=== PATIENT | female | born 1975 | race Caucasian/White ===

== ENCOUNTER 2017-07-15 06:15 | Observation (INO) ==
[2017-07-15] MEDS ORDERED: CIPROFLOXACIN INJ 400 MG in PREMIX 1 EACH IV ONE (07:00)
--- NOTE | 2017-07-15 07:06 | History and Physical Update ---
History and Physical Update - History and Physical H&P was reviewed, the patient examined and there: are no changes in the patients condition since last H&P was completed.
--- NOTE | 2017-07-15 07:41 | EKG Report ---
Stationary ECG Study [facility] Test Date: 07/15/2017 7:38:47 AM Pat Name: AZALIA JONES Department: Room: 609 Gender: F Site Physician: ZANDER : [id number] Requested by: Andrew Mena Order Number: [id number] Reading MD: DEMARCO MENDES Intervals [place] Rate: 65 P: 42 SD: 155 QRS: 60 QRSD: 85 T: 43 QT: 387 QTc: 399 Interpretive Statements SINUS RHYTHM Electronically Signed On 07-15-17 08:05:35 CDT by DEMARCO MENDES [email or web address]
--- NOTE | 2017-07-15 07:50 | XRay Report ---
XR chest 1V Indication: Preop evaluation Comparison: None Technique: Single frontal view of the chest. Findings: Heart size within normal limits. No focal consolidation, pleural effusion, or pneumothorax. Visualized osseous and surrounding soft tissue structures demonstrate no acute abnormality. IMPRESSION: No acute cardiopulmonary process demonstrated. PROCEDURE INTERPRETED AT [facility] DEPARTMENT OF RADIOLOGY Final Report Signed by: Dr Hector Jarvis
[2017-07-15 08:13] LABS: Basophils % 0.6 % (0.0-0.8); Eosinophils # 0.1 10*3/uL (0.0-0.87); Eosinophils % 2.3 % (0.00-10.9); Hematocrit 37.5 VOL% (35.7-47.0); Hemoglobin 13.4 GM/DL (12.0-16.0); Immature Granulocytes % 0.2 %; Immature Granulocytes Absolute 0.01 #; Lymphocytes # 1.3 10*3/uL (1.4-4.0); Lymphocytes % 24.6 % (21.3-54.2); Mean Corpuscular HGB Conc 35.7 GM/DL (32-36); Mean Corpuscular Hemoglobin 35 PG (27-34); Mean Corpuscular Volume 98.7 FL (87-102); Mean Platelet Volume 10.3 FL (9.6-12.0); Monocytes # 0.5 10*3/uL (0.11-0.8); Neutrophils # 3.2 10*3/uL (1.4-7.4); Neutrophils % 62.3 % (38.7-73.9); Platelet Count 197 T/CUMM (130-400); Red Cell Distribution Width 12.7 % (9.3-17.3); White Blood Count 5.2 T/CUMM (4-12)
[2017-07-15 08:36] LABS: Albumin 3.7 G/DL (3.4-5.0); Bilirubin,Total 0.8 MG/DL (0.2-1.0); Calcium 8.4 MG/DL (8.5-10.1); Osmolality,Calculated 277.7 MOS/KG (273-304); Potassium 4.1 MMOL/L (3.5-5.1); Total Protein 7.2 G/DL (6.4-8.3)
[2017-07-15] MEDS ORDERED: CIPROFLOXACIN 400 MG/200 ML PREMIX IV ONE (08:43)
[2017-07-15] MEDS ORDERED: DIAZEPAM 5 MG TABLET ONE (10:07)
[2017-07-15] MEDS ORDERED: FAMOTIDINE 20 MG TABLET PO ONE (10:36)
[2017-07-15] MEDS ORDERED: DIAZEPAM 5 MG TABLET PO ONE (10:36)
[2017-07-15] MEDS ORDERED: FAMOTIDINE 20 MG TABLET ONE (10:57)
[2017-07-15] MEDS ORDERED: LACTATED RINGERS 1,000 ML IV SCH (11:00)
[2017-07-15] MEDS ORDERED: BUPIVACAINE MPF 0.25% /EPI 30 ML VIAL ONE (12:36)
[2017-07-15] MEDS ORDERED: ROCURONIUM 100 MG/10 ML VIAL IV ONE (13:07)
[2017-07-15] MEDS ORDERED: PROPOFOL 200 MG/20 ML VIAL IV ONE (13:07)
[2017-07-15] MEDS ORDERED: KETOROLAC 30 MG/1 ML VIAL ONE (13:07)
[2017-07-15] MEDS ORDERED: ONDANSETRON 4 MG/2 ML VIAL ONE (13:07)
[2017-07-15] MEDS ORDERED: LIDOCAINE 1% 5 ML VIAL ONE (13:07)
[2017-07-15] MEDS ORDERED: TISSUE ADHESIVE 1 EACH APPLICATOR TOP ONE (14:38)
--- NOTE | 2017-07-15 14:38 | Fluoroscopy Report ---
Exam: [place] cholangiogram in surgery Date: 07/15/2017 Indication: Pain Comparison: None Findings: 26 seconds fluoroscopy time provided to Dr. Mena. The common bile duct left and right biliary radicals are unremarkable. Contrast empties through the ampulla into the duodenum. Surgical clips are present. Surgical is dilatation noted. Approximately 10 cc iodinated contrast administered. No extravasation of contrast noted. Faint filling of the pancreatic duct is demonstrated on the delayed images. Impression: 1. Normal intraoperative cholangiography. PROCEDURE INTERPRETED AT [facility] DEPARTMENT OF RADIOLOGY Final Report Signed by: Dr. Chandler Simon
[2017-07-15] MEDS ORDERED: BISACODYL 5 MG TABLET PO PRN (14:52)
[2017-07-15] MEDS ORDERED: ACETAMINOPHEN 325 MG TABLET PO PRN (14:52)
[2017-07-15] MEDS ORDERED: HYDROmorphone 2 MG/1 ML VIAL IV PRN (14:52)
--- NOTE | 2017-07-15 15:05 | Operative Note ---
Date of procedure: 07/15/17 Pre-op diagnosis: Cholecystitis with cholelithiasis Post-op diagnosis: same Procedure: Operative note: Preoperative diagnosis: Cholecystitis with cholelithiasis. Postoperative diagnosis: Same Procedure: Laparoscopic cholecystectomy with intraoperative cholangiogram Surgeon Dr. Mena Tuberculosis Specialist Tish Garcia, [facility] Anesthesia is general with local Brief history: 42-year-old white female with recurrent episodes of nausea and vomiting and epigastric pain that radiates to her back into the right flank area especially after eating certain foods. She has had an ultrasound that showed that she had some gallstones in the gallbladder and there was a question of a little cystic area in the liver. Her symptoms were very consistent with gallbladder disease and because she is having recurring attacks we felt his best go ahead and move along with removing the gallbladder. She came through same day surgery. Procedure: With patient in the supine position prepped and draped in sterile fashion timeout and antibiotics completed approaches area of the abdomen itself. She has a bellybutton ring scar present so we will try to go just above that after infiltrated with a local anesthetic made little incision just above this area at the level of the umbilicus calf dissected down through the skin and subcutaneous tissue bleeding controlled with cauterization. I incised the fascia with the knife and elevated that up carefully dissected until I could easily get into the peritoneal cavity under direct vision. I then placed a 11 mm trocar in and we instilled 3 L of CO2 into the abdomen. With that completed we will put her scope and begin to look around pelvic area looked clear even portions of the colon right lower quadrant all look fairly normal with no inflammatory changes present this time no unusual adhesions seen. Then look back up at the liver what we could see of the liver all look normal I did not see any abnormalities he looks smooth and clean no fatty changes present at this time. At that point I went ahead and placed in a 5 mm trocar at the anterior axillary and one in the midclavicular line and then epigastric 11 mm trocar under direct vision. Patient was then placed in the upright tilted left side position. At that point we see the gallbladder which was pale and steward in nature but not unusually thickened at this time. I was able to grab the fundus and elevated up and then put a grasper own to the infundibulum portion. Again what we are seeing of the liver looked all normal. At that point I begin careful dissection until I could easily identify the cystic duct. I put a clip on it approximately we made little incision in the cystic duct. I then placed a cholangiocatheter and clipped in place. We brought C arm up and we did several x-rays that showed that there were no stones in the common duct upper radicles looked okay this was in the cystic duct. At that point we then went back and reestablished our exposure. I then removed the clip and the Cholangiocath that I placed 3 clips across the distal part of the cystic duct and divided it. Carefully dissected out cystic artery and placed 3 clips on approximately 1 distally and divided it. I then begin to take the gallbladder out by incising peritoneal attachments anteriorly and posteriorly begin sharp and blunt dissection in order to get the gallbladder out of the liver bed using light cauterization and a couple clips to controlling bleeding. Once I had the gallbladder free from the liver bed I placed in the Endo Catch bag we pulled it out through the umbilical port without problems. We went back in washed and irrigated above and below the liver there was a small bleeder that we touched and got under control and then it looked like there was no evidence of any bleeding present. Once that was completed and the liver bed looked dry we had cleaned out we then went back and pulled her trocar sites with no bleeding from them. Went to the epigastric port and placed a single suture of 0 Monocryl in that epigastric fascia just close it down. We then went back to the umbilical port were closed that fascia with interrupted 0 Monocryl suture. Once that was done we washed irrigated out the subtenons tissue closed with 3-0 Vicryl and then closed skin running 4-0 Monocryl Dermabond was applied and the patient was taken to recovery room. Estimated blood loss 20 cc Sponge count correct 2 Drains none Complications none Condition stable satisfactory Anesthesia: GETA, local (0.25% Marcaine with epinephrine mixed [id number] 1% Xylocaine plain) Surgeon / Physician: Andrew Mena Tuberculosis Specialist: Tish Garcia Estimated blood loss: other (20 cc) Specimens: other (Gallbladder) Condition: stable Disposition: floor Results - Labs CBC & BMP: 07/15/17 07:54 07/15/17 07:54 Discharge Plan - Discharge Medications No Action No Known Home Medications [No Known Home Medications] - Follow Up or Referral - Forms/Instructions
--- NOTE | 2017-07-15 15:07 | Anesthesia Post-Op ---
Anesthesia Post OP - Post Ansesthetic Evaluation Patient seen in post op: Yes Resp: within normal limits CV: within normal limits Mental: within normal limits Temp: within normal limits [id number]: within normal limits Nausea and Vomiting: within normal limits Pain: within normal limits
[2017-07-15] MEDS ORDERED: SEVOFLURANE 1 UNIT/15 MINUTE INH ONE (15:09)
[2017-07-15] MEDS ORDERED: ACETAMINOPHEN 1,000 MG/100 ML VIAL IV ONE (15:10)
[2017-07-15] MEDS ORDERED: LACTATED RINGERS 1,000 ML IV ONE (15:10)
[2017-07-15] MEDS ORDERED: fentaNYL 100 MCG/2 ML VIAL ONE (15:10)
[2017-07-15] MEDS ORDERED: MIDAZOLAM 2 MG/2 ML VIAL ONE (15:10)
[2017-07-15] MEDS: KETOROLAC 15 MG/1 ML VIAL IV SCH (16:59)
[2017-07-15] MEDS: DEXTROSE 5% NACL 0.45% 1,000 ML IV SCH (17:08)
[2017-07-15] MEDS: ONDANSETRON 4 MG/2 ML VIAL IV PRN ×2 (17:25→21:27)
[2017-07-15 20:10] LABS: Hematocrit 34.5 VOL% (35.7-47.0)
[2017-07-15] MEDS: ALUMINUM/MAGNES/SIMETH MAX STR 30 ML UDCUP PO PRN (21:27)
[2017-07-16] MEDS: KETOROLAC 15 MG/1 ML VIAL IV SCH ×4 (01:01→15:08)
[2017-07-16] MEDS: CIPROFLOXACIN INJ 400 MG in PREMIX 1 EACH IV SCH ×2 (02:14→15:07)
[2017-07-16] MEDS: DEXTROSE 5% NACL 0.45% 1,000 ML IV SCH ×2 (03:28→11:00)
[2017-07-16 06:30] LABS: Basophils % 0.4 % (0.0-0.8); Eosinophils # 0.1 10*3/uL (0.0-0.87); Eosinophils % 1.9 % (0.00-10.9); Hematocrit 32.4 VOL% (35.7-47.0); Hemoglobin 11.4 GM/DL (12.0-16.0); Immature Granulocytes % 0.2 %; Immature Granulocytes Absolute 0.01 #; Lymphocytes % 21.7 % (21.3-54.2); Mean Corpuscular HGB Conc 35.2 GM/DL (32-36); Mean Corpuscular Hemoglobin 35 PG (27-34); Mean Corpuscular Volume 100.3 FL (87-102); Mean Platelet Volume 10.3 FL (9.6-12.0); Monocytes # 0.5 10*3/uL (0.11-0.8); Monocytes % 9.4 % (1.7-12.7); Neutrophils # 3.2 10*3/uL (1.4-7.4); Neutrophils % 66.4 % (38.7-73.9); Platelet Count 170 T/CUMM (130-400); Red Blood Count 3.23 MC/CUMM (3.8-5.5); Red Cell Distribution Width 12.8 % (9.3-17.3); White Blood Count 4.8 T/CUMM (4-12)
[2017-07-16 06:56] LABS: Calcium 7.4 MG/DL (8.5-10.1); Osmolality,Calculated 275.5 MOS/KG (273-304); Potassium 3.6 MMOL/L (3.5-5.1)
[2017-07-16] MEDS ORDERED: ENOXAPARIN 40 MG/0.4 ML SYRINGE ONE (07:39)
[2017-07-16] MEDS: ONDANSETRON 4 MG/2 ML VIAL IV PRN ×2 (07:51→22:06)
[2017-07-16] MEDS: ENOXAPARIN 40 MG/0.4 ML SYRINGE SUBCUT SCH (08:16)
[2017-07-16] MEDS: PANTOPRAZOLE 40 MG TABLET PO SCH (08:16)
--- NOTE | 2017-07-16 08:28 | General Surgery Progress Note ---
Assessment and Plan - Time spent with patient Time spent with patient: Less than 30 minutes (1) Cholelithiasis with chronic cholecystitis Status: Acute Assessment and plan: 07/15/2017. Stable postop laparoscopic cholecystectomy for chronic cholecystitis with cholelithiasis. She does have moderate degree of postop nausea without vomiting at this point. We will attempt to get her nausea under control and advance her diet. If she tolerates this well and is able to ambulate, will plan to discharge her home later this afternoon. Current Visit: Yes Subjective Patient reports: Present: still having pain, voiding w/o difficulty, nausea, other (Patient says she is hungry but does not want to eat for fear of it worsening her nausea. She describes pain "worse than she thought it would be" but his pain scale is less than 5. She is currently tearful, and says it is due to the Lovenox injection she received). Absent: vomiting Exam - Constitutional Vitals: Period Temp Pulse Resp BP Sys/[place] Pulse Ox Last 24 Hr 97 F-98.6 F 63-88 12-20 89-111/54-74 90-99 General appearance: mild distress, other (Patient is anxious and tearful; her is at the bedside and her breakfast tray is before her, she is attempting to eat but has not eaten at this time.) - Head Head exam: Present: normal inspection - Eye Eye exam: Present: EOMI Pupils: Present: HUBERT - Respiratory Respiratory exam: Absent: rales, rhonchi, wheezes - Cardiovascular Cardiovascular exam: Present: RRR - GI/Abdominal GI/Abdominal exam: Present: hypoactive bowel sounds, soft, other (Abdomen is soft and appropriately tender about the laparoscopic incision sites. There is no unusual ecchymosis, no drainage, no unusual induration. The incisions are well approximated and appear well sealed with skin adhesive.) - Extremities Exam Extremities exam: Present: other (Bilateral lower extremity SCD devices in place ). Absent: calf tenderness, edema Results - Labs CBC & BMP: 07/16/17 06:11 07/16/17 06:11 Lab Results: I have reviewed the past 24 hour labs (Postop labs are within normal limits.)
[2017-07-17] MEDS: KETOROLAC 15 MG/1 ML VIAL IV SCH ×3 (00:47→11:01)
[2017-07-17] MEDS: CIPROFLOXACIN INJ 400 MG in PREMIX 1 EACH IV SCH (01:15)
[2017-07-17] MEDS: ALUMINUM/MAGNES/SIMETH MAX STR 30 ML UDCUP PO PRN (08:17)
[2017-07-17] MEDS: PANTOPRAZOLE 40 MG TABLET PO SCH (08:18)
[2017-07-17] MEDS: ENOXAPARIN 40 MG/0.4 ML SYRINGE SUBCUT SCH (08:19)
--- NOTE | 2017-07-17 09:42 | Discharge Summary ---
Hospital Course - Hospital Course Hospital Course: Discharge summary 07/17/2017. Diagnosis: Chronic cholecystitis with cholelithiasis Procedure performed: Laparoscopic cholecystectomy with intraoperative cholangiogram Brief summary: This 42-year-old white female was referred to Dr. Mena service after approximately 2 months of intermittent bloating and right upper quadrant abdominal pain. She was found by her primary care physician to have gallstones on ultrasound. Incidental finding was made about 1 cm cystic area in the liver , with recommendations for CT follow-up. Unfortunately she was never able to get prior approval from her insurance company for the CT scan and her fatty food intolerance and bloating became more bothersome, so she desired to proceed with cholecystectomy as outpatient procedure. She was taken to the OR 07/15/2017 , where an uncomplicated laparoscopic cholecystectomy with intraoperative cholangiogram was performed a cholangiogram did not show any retained stones, and she was taken to PACU in satisfactory condition, however she did develop intractable postop nausea. This was persistent and she was unable to eat the first postoperative day. She did have stable vital signs and labs, and was able to void without difficulty. She had a good degree of abdominal bloating and bowel sounds but no flatus per rectum and no bowel movement. We did administer laxatives and Mylanta, as well as Zofran to control her nausea. She was eventually able to eat small amounts of food and we adjusted her pain medications, feeling that this was partially the source of her nausea. She eventually was able to tolerate a regular diet and was ambulatory in the rajan. She is still not had a bowel movement, but she is much more comfortable, her incisions are clean and dry without any unusual swelling, she is voiding without difficulty and is having no further nausea except as related to her pain medications, and this is controlled with Zofran. She would like to be discharged home, and this is reasonable so we will plan to discharge her home today on [place] for pain. We will also include a prescription for Zofran. We will plan to follow her up in our office for suture removal in approximately 7- 14 days unless she has problems. She was cautioned regarding her physical restrictions and limitations, and not to drive while using narcotic pain medication. - Time spent with patient Time with patient DS: Greater than 30 minutes Diagnosis - Discharge Diagnosis (1) Cholelithiasis with chronic cholecystitis Status: Acute Specialty Discharge - Follow Up or Referrals Follow up with: Andrew Mena MD [Physician] - Discharge Plan - Discharge Data Disposition: Disch To Home/Self Care Condition at Discharge: Stable Discharge Diet: advance to your usual diet Activity: resume usual activities as tolerated, no lifting (Over 25 pounds) Hygiene: may shower Weight Bearing at Discharge: full weight bearing Driving: not for (1 week) Contact your physician if you experience:: fever over 101, Difficulty voiding, Redness or swelling, Nausea/Vomiting, Shortness of breath, Bleeding, pain uncontrolled by pain medications Wound / Dressing Care Instructions: Shower daily using antibacterial soap. Avoid lotions, oils, ointments, or creams to incisions. Use binder and light dressing for comfort - Discharge Medications New Docusate Sodium Cap [Colace Cap] 100 mg PO BEDTIME #30 capsule HYDROcodone/ACETAMIN 7.5-325 [[place] 7.5-325] 1 tablet PO Q6H #20 tablet Ondansetron Tab [Zofran Tab] 4 mg PO Q4H #20 tablet - Follow Up or Referral - Forms/Instructions Instructions: Laparoscopic Cholecystectomy (DC) Exam - Constitutional Vitals: Period Temp Pulse Resp BP Sys/[place] Pulse Ox Last 24 Hr 97.0 F-97.9 F 61-72 18-18 95-116/52-67 90-100 General appearance: normal weight, no acute distress - Head Head exam: Present: normal inspection - Eye Eye exam: Present: EOMI - Respiratory Respiratory exam: Present: clear to auscultation bilaterally - Cardiovascular Cardiovascular exam: Present: regular rate and rhythm - GI/Abdominal GI/Abdominal exam: Present: hypoactive bowel sounds - Extremities Exam Extremities exam: Present: normal inspection - Neurological Exam Neurological exam: Present: alert, oriented X3 DS: Provider Date of admission: 07/15/17 14:42 Attending physician on admission: Andrew Mena MD Discharging clinician: Tish Garcia CNP, R
[2017-07-17 11:01] VITALS: BP 96/54
--- NOTE | 2017-07-17 11:16 | Pathology Report from [facility] ---
[facility] ACCESSION # : [id number] PATIENT NAME : Roberta Jones ORDERING DR : TONI CASTILLO MD CLINICAL HX: Cholelithiasis POST-OP DX: Same SPECIMEN INFO: Gallbladder GROSS DESCRIPTION: The specimen is received in formalin labeled with the patients name and consists of an opened gallbladder measuring 5.3 x 3.0 cm. The serosa is blue-hopson and fatty. The wall averages 0.2 cm in thickness. The mucosal is granular, light green with scattered areas of yellow streaking present. Received in the container are three lobulated brown-gold stones collectively measuring 2.0 x 0.6 cm with the largest stone measuring 0.7 cm. Hat Copyist tissue submitted in one cassette. DIAGNOSIS FOR ROBERTA JONES: GALLBLADDER, CHOLECYSTECTOMY: Chronic cholecystitis. Cholelithiasis. COLLECTED DATE: 07/16/2017 [facility] REPORT DATE: 07/17/2017 ELECTRONICALLY SIGNED BY: Ronit Aguayo M.D. 07/17/2017 - 9:32:41 [facility]
== END 2017-07-17 11:35 | disposition home or self-care (01) ==
LOC: N.OR 06:15 → N.3E 06:15 → N.SDSINP 06:16 → N.3E 15:48
PROVIDERS: ADMIT Specialist; ATTEND Specialist
PROC: LAPCHOL (2017-07-15 13:07)